=== PATIENT | male | born 1955 | race Caucasian/White ===

== ENCOUNTER 2022-07-25 15:41 | Observation (INO) ==
[2022-07-25 16:59] LABS: Basophils # 0.1 10*3/uL (0.0-0.2); Basophils % 0.5 % (0.0-0.8); Eosinophils # 0.8 10*3/uL (0.0-0.87); Eosinophils % 4.9 % (0.00-10.9); Hematocrit 41.8 VOL% (42.0-52.0); Immature Granulocytes % 0.6 %; Immature Granulocytes Absolute 0.09 #; Lymphocytes # 1.8 10*3/uL (1.4-4.0); Lymphocytes % 11.7 % (21.2-54.2); Mean Corpuscular HGB Conc 33.5 GM/DL (32-36); Mean Platelet Volume 9.2 FL (9.6-12.0); Monocytes # 1.4 10*3/uL (0.11-0.8); Monocytes % 8.9 % (1.7-12.7); Neutrophils % 73.4 % (38.7-73.9); Platelet Count 288 T/CUMM (130-400); Red Cell Distribution Width 13.1 % (9.3-17.3); White Blood Count 15.7 T/CUMM (4-12)
[2022-07-25 17:18] LABS: Albumin 4.1 G/DL (3.4-5.0); Bilirubin,Total 0.7 MG/DL (0.20-1.00); Calcium 9.1 MG/DL (8.5-10.1); Osmolality,Calculated 280.3 MOS/KG (273-304); Potassium 3.6 MMOL/L (3.5-5.1); Total Protein 7.3 G/DL (6.4-8.2)
[2022-07-25 17:22] LABS: Eosinophils 1 % (0-10); Lymphocytes 16 % (20-55); Total Cells Counted 100
[2022-07-25 17:23] LABS: Platelet Estimate Normal
[2022-07-25] MEDS ORDERED: ACETAMINOPHEN 325 MG TABLET PO PRN (20:22)
[2022-07-25] MEDS ORDERED: ONDANSETRON 4 MG/2 ML VIAL IV PRN (20:22)
[2022-07-25] MEDS ORDERED: LACTATED RINGERS 1,000 ML IV SCH (20:30)
[2022-07-25] MEDS ORDERED: METHOCARBAMOL 750 MG TABLET PO PRN (20:30)
[2022-07-25] MEDS ORDERED: cilostazoL 100 MG TABLET PO SCH (21:00)
[2022-07-25] MEDS ORDERED: PREGABALIN 75 MG CAPSULE PO SCH (21:00)
[2022-07-25] MEDS ORDERED: NABUMETONE 500 MG TABLET PO SCH (21:00)
[2022-07-25] MEDS ORDERED: ASPIRIN EC 81 MG TABLET PO SCH (21:00)
[2022-07-26 04:33] LABS: Partial Thromboplastin Time 30.2 SECS (23.7-32.9)
[2022-07-26 05:07] LABS: Risk Ratio 4.49; VLDL Cholesterol 26.4 MG/DL
[2022-07-26] MEDS ORDERED: PANTOPRAZOLE 40 MG TABLET PO SCH (09:00)
[2022-07-26] MEDS ORDERED: MULTIVITAMIN (CENTRUM) TABLET PO SCH (09:00)
[2022-07-26] MEDS ORDERED: ENALAPRIL 20 MG TABLET PO SCH (09:00)
[2022-07-26] MEDS ORDERED: CLOPIDOGREL 75 MG TABLET PO SCH (09:00)
[2022-07-26] MEDS ORDERED: amLODIPine 10 MG TABLET PO SCH (09:00)
[2022-07-26 09:28] VITALS: BP 142/87
[2022-07-26] MEDS ORDERED: MULTIVITAMIN (OCUVITE) TABLET PO SCH (21:00)
== END 2022-07-26 10:10 | disposition home or self-care (01) ==
LOC: N.EDINP 15:41 → N.ED 15:41 → N.EDINP 07-26 10:29
PROVIDERS: ADMIT Internal Medicine; ATTEND Internal Medicine